=== PATIENT | male | born 1950 | race Two or more races ===

== ENCOUNTER 2022-07-17 14:02 | Emergency (ER) | payer BC ==
[~2022-07-17] VITALS: Ht 182.9 cm; Wt 83.9 kg
--- NOTE | 2022-07-17 14:15 | NUR ---
RECEVED PT 72 YRS MALE CAME FROM [facility] C/O GINRALIZED BODY AND ITHING FOR 3 DAYS pt had genalized spoting rash
[2022-07-17] MEDS ORDERED: METH4TAB17 PO (15:44)
--- NOTE | 2022-07-17 15:54 | NUR ---
[facility] called [facility] 90 mins
--- NOTE | 2022-07-17 16:41 | NUR ---
PICKED UP BY [facility] IN STABLE CONDITION. PATIENT WILL BE TRASFERRED TO [facility]. ALL BELONGINGS GIVEN BACK TO PATIENT.
[2022-07-17 16:44] VITALS: BP 134/82
== END 2022-07-17 16:45 | disposition home or self-care (01) ==
LOC: ER 14:24
DX: R21 Rash and other nonspecific skin eruption (principal); R22.9 Localized swelling, mass and lump, unspecified; I10 Essential (primary) hypertension; Z79.899 Other long term (current) drug therapy
CPT/HCPCS: 73030-TC